=== PATIENT | female | born 1995 ===

== ENCOUNTER 2024-01-31 12:46 | Emergency (ER) | payer MEDICAID, OTHER ==
[~2024-01-31] VITALS: Ht 154.9 cm; Wt 65.9 kg
[2024-01-31 12:48] VITALS: TEMP 98
[2024-01-31] MEDS: LIDOCAINE 5% TRANSDERMAL PATCH TD ONE ×2 (13:25→14:36)
[2024-01-31] MEDS: KETOROLAC TROMETHAMINE 30 MG/ML VIAL IM ONE (13:31)
[2024-01-31 14:46] VITALS: BP 135/77; PULSE 64; RESP 16; O2SAT 100
[2024-01-31] MEDS ORDERED: CYCL-448 PO (14:48)
[2024-01-31] MEDS ORDERED: IBUP-1492 PO (14:48)
== END 2024-01-31 15:04 | disposition home or self-care (01) ==
LOC: EMS 12:46
DX: S29.012A Strain of muscle and tendon of back wall of thorax, initial encounter (principal); Z91.013 Allergy to seafood; V43.52XA Car driver injured in collision with other type car in traffic accident, initial encounter; Y93.89 Activity, other specified; Y92.410 Unspecified street and highway as the place of occurrence of the external cause; Y99.8 Other external cause status
CPT/HCPCS: 99283; 84703; 96372; J1885